=== PATIENT | male | born 1940 | race Caucasian/White ===

== ENCOUNTER 2019-03-29 21:17 | Inpatient (IN) ==
[2019-03-29 21:32] LABS: BASO# 0.02 X1000 (0.0-0.2); BASO% 0.2 % (0.0-0.8); EOS# 0.03 X1000 (0.0-0.7); EOS% 0.3 % (0.0-10.0); HEMATOCRIT 31.8 % (42.0-52.0); HEMOGLOBIN 10.3 g/dL (14.0-18.0); IMM GRAN# 0.12 X1000 (0.0-0.04); IMM GRAN% 1.2 % (0.0-0.5); LYMPH# 0.91 X1000 (1.2-3.4); LYMPH% 9.1 % (20.5-51.1); MCH 30.1 PG (27-31); MCHC 32.4 g/dL (33-37); MONO# 0.75 X1000 (0.11-0.59); MONO% 7.5 % (1.7-9.3); MPV 12.2 FL (7.4-10.4); NEUT# 8.21 X1000 (1.4-6.5); NEUT% 81.7 % (42.2-75.2); PLT 247 X1000 (130-400); RBC 3.42 XMIL (4.7-6.1); RDW 14.1 % (11.5-14.5); WBC 10.04 X1000 (4.8-10.8)
[2019-03-29] MEDS ORDERED: NITROGLYCERIN TOP ONE (21:37)
--- NOTE | 2019-03-29 21:38 | PROVIDER DOCUMENTATION ---
This chart was entered by Kindra Whitlock Scribe, acting as scribe for Jeremy Jorgensen MD. HPI-Chest Pain - General Chief Complaint: Chest Pain Stated Complaint: CP Time Seen by Provider: 03/29/19 21:18 Source: patient Allergies/Adverse Reactions: Patient Allergies Allergy/AdvReac Type Severity Reaction Status Date / Time No Known Allergies Allergy Verified 03/29/19 21:24 Home Medications: Home Medication List Medication Instructions Recorded Confirmed Last Taken Type Donepezil [Aricept] 10 mg PO DAILY 07/21/18 03/29/19 Unknown History Fluoxetine [Prozac] 10 mg PO DAILY 07/21/18 03/29/19 Unknown History Olmesartan Medoxomil [Benicar] 40 mg PO DAILY 07/21/18 03/29/19 Unknown History Meloxicam [Mobic] 15 mg PO DAILY #20 tab 03/21/19 03/30/19 Unknown Rx Allopurinol 100 mg PO DAILY 03/29/19 03/29/19 Unknown History Atenolol 50 mg PO DAILY 03/29/19 03/29/19 Unknown History Buspirone HCl 15 mg PO 4XDAY 03/29/19 03/30/19 Unknown History Chlorthalidone 25 mg PO DAILY 03/29/19 03/29/19 Unknown History Ergocalciferol (Vitamin D2) 1 cap PO DIRECTED 03/29/19 03/29/19 Unknown History [Vitamin D2] Fexofenadine HCl 1 tab PO DAILY 03/29/19 03/30/19 Unknown History Glimepiride [Amaryl] 1 tab PO DAILY 03/29/19 03/30/19 Unknown History Hydroxyzine HCl 10 mg PO BID 03/29/19 03/29/19 Unknown History Linaclotide [Linzess] 290 mcg PO DAILY 03/29/19 03/29/19 Unknown History Mirtazapine [Remeron] 1 tab PO DAILY 03/29/19 03/30/19 Unknown History Sitagliptin [Januvia] 50 mg PO DAILY 03/29/19 03/30/19 Unknown History - History of Present Illness-CP Nature of Presenting Problem: pt is a 79 yr old male presenting with complaint of shortness of breath and chest pressure, shortness of breath x 1+ weeks, seen x 2 by PCP for same, chest pressure/heaviness onset 1200 today. pt reports pain 5/10, continued shortness of breath, no nausea or vomiting. no relief with nitro or ASA. Location: reports: central Chest Pain Radiation: reports: no radiation Quality of Pain: reports: pressure, other (heavy) Severity in ED: moderate Onset/Duration: this afternoon Timing: still present Context/Activities at Onset: reports: light activity Modifying Factors: improves with: other medication (asa, nitro without relief) Associated Symptoms: reports: shortness of breath. denies: diaphoresis, nausea, vomiting Nitro Today/Relief: 0.4 mg x 1, provided by EMS, no relief Aspirin Treatment Today: 81 mg x 4, provided by EMS Similar Symptoms Previously?: Yes Recently Seen Here or By Another Healthcare Provider: Yes (seen x 2 this week by PCP) Review of Systems - Adult - REVIEW OF SYSTEMS - ADULT Constitutional: denies: chills, fever Eyes: reports: no symptoms reported Ears, Nose, Mouth & Throat: reports: no symptoms reported Cardiovascular: reports: chest pain. denies: palpitations, syncope Respiratory: reports: shortness of breath. denies: cough Gastrointestinal: denies: abdominal pain, nausea, vomiting Genitourinary: reports: no symptoms reported Musculoskeletal: denies: back pain, muscle weakness, neck pain Integumentary: reports: no symptoms reported Neurological: denies: dizziness/vertigo, headache/migraines, syncope Psychiatric: reports: no symptoms reported Endocrine: reports: no symptoms reported Hematologic/Lymphatic: reports: no symptoms reported Allergic/Immunologic: reports: no symptoms reported All Other Systems: Reviewed and Negative Past History - Adult - PAST MEDICAL HISTORY-ADULT Review of Records: reports: Old Records Reviewed, Nursing Assessment Review, Medications Reviewed, Social history reviewed & non-contributory. Major Childhood Illnesses: reports: denies history Cardiovascular: reports: HTN Respiratory: reports: denies history Gastrointestinal: reports: denies history Obstetrical/Gynecological: reports: denies history Genitourinary: reports: denies history Musculoskeletal: reports: denies history Neurological: reports: denies history Psychiatric: reports: denies history Endocrine/Immune: reports: denies history Other Conditions: reports: denies history - PRIOR SURGERIES/PROCEDURES Surgical/Procedure History: reports: reviewed, not pertinent, appendectomy - IMMUNIZATION STATUS Childhood Immunizations: See Nurse Assessment Flu Vaccine: See Nurse Assessment - FAMILY HISTORY Family History: reviewed, not pertinent - SOCIAL HISTORY Smoking: denies Substance Use: denies Living Situation: family Physical Exam-General - PHYSICAL EXAM-ADULT Initial Vital Signs Reviewed: Yes - CONSTITUTIONAL General Appearance: alert, no apparent distress, anxious - EYES Eyes: PERRL/EOMI - HEAD, EARS, NOSE, MOUTH & THROAT HENMT: normocephalic/atraumatic, moist mucous membranes, normal ENT inspection - NECK Neck: non-tender, full range of motion, supple, normal inspection - RESPIRATORY Respiratory: chest non-tender, no pleuratic chest pain, no respiratory distress, no accessory muscle use, decreased breath sounds (dimisnished bilaterally) - CARDIOVASCULAR Cardiovascular: normal peripheral pulses, regular rate, rhythm, no edema - GASTROINTESTINAL (ABDOMEN) Abdominal Exam: normal bowel sounds, non tender, soft - LYMPHATIC Lymphatic: no adenopathy - MUSCULOSKELETAL Back Exam: normal inspection, no CVA tenderness, no vertebral tenderness Extremity: normal range of motion, non-tender, normal gait, normal inspection - SKIN Integumentary: normal color, normal turgor, warm/dry - NEUROLOGIC Neurologic: grossly normal - PSYCHIATRIC Psych/Mental Status: anxious - HEART Score HEART Score: History: Slightly Suspicious HEART Score: ECG: Normal HEART Score: Age: > or = 65 Years HEART Score: Risk Factors for Atherosclerotic Disease: > or = 3 Risk Factors or History of Atherosclerotic Disease HEART Score: Troponin: < or = Normal Limit Total HEART Score:: 4 Progress - PLAN OF CARE/RESULTS Progress/Plan/Lab Results: Vital Signs - 8 hr 03/29/19 21:13 03/30/19 00:16 Temperature 99.2 F Pulse Rate 67 57 L Respiratory Rate 26 H 23 Blood Pressure 240/100 175/76 O2 Sat by Pulse Oximetry 98 97 Laboratory Results - last 24 hr 03/29/19 03/29/19 03/29/19 21:20 21:20 21:20 WBC 10.04 RBC 3.42 L Hgb 10.3 L Hct 31.8 L MCV 93.0 MCH 30.1 MCHC 32.4 L RDW Std Deviation 14.1 Plt Count 247 MPV 12.2 H Immature Gran % (Auto) 1.2 H Neut % (Auto) 81.7 H Lymph % (Auto) 9.1 L Teller % (Auto) 7.5 Eos % (Auto) 0.3 Baso % (Auto) 0.2 Immature Gran # (Auto) 0.12 H Neut # (Auto) 8.21 H Lymph # (Auto) 0.91 L Teller # (Auto) 0.75 H Eos # (Auto) 0.03 Baso # (Auto) 0.02 D-Dimer, Quantitative Sodium Potassium Chloride Carbon Dioxide Anion Gap BUN Creatinine Estimated GFR/1.73 m2 BUN/Creatinine Ratio Glucose Calculated Osmolality Calcium Total Bilirubin AST ALT Alkaline Phosphatase Creatine Kinase 46 Troponin T 0.051 Obi-P-Pppdfyxuanc Pept Total Protein Albumin Globulin Albumin/Globulin Ratio 03/29/19 03/29/19 03/29/19 21:20 21:20 21:20 WBC RBC Hgb Hct MCV MCH MCHC RDW Std Deviation Plt Count MPV Immature Gran % (Auto) Neut % (Auto) Lymph % (Auto) Teller % (Auto) Eos % (Auto) Baso % (Auto) Immature Gran # (Auto) Neut # (Auto) Lymph # (Auto) Teller # (Auto) Eos # (Auto) Baso # (Auto) D-Dimer, Quantitative 4.18 H Sodium 144 Potassium 4.4 Chloride 111 H Carbon Dioxide 18 L Anion Gap 14 BUN 41 H Creatinine 2.9 H Estimated GFR/1.73 m2 21 BUN/Creatinine Ratio 14 Glucose 222 H Calculated Osmolality 304 Calcium 7.8 L Total Bilirubin 0.30 AST 12 ALT 16 Alkaline Phosphatase 86 Creatine Kinase Troponin T Deo-Z-Blaovsuwjky Pept 05159 H Total Protein 5.6 L Albumin 3.3 L Globulin 2.0 Albumin/Globulin Ratio 1.0 Orders Category Date Time Status Admit - [facility] Routine AdmDCTranf 03/29/19 23:49 Active Activity - Strict Bedrest ORDERED Care 03/29/19 23:49 Active Cardiac Monitoring DIRECTED Care 03/29/19 21:23 Active Neurological Check Q4H Care 03/29/19 23:50 Active Resuscitation Status Routine Care 03/29/19 23:49 Ordered Vital Signs Order Q 4-HR ASSESS Care 03/29/19 23:49 Active Z-Document. for Tele Applied ORDERED Care 03/29/19 23:51 Active Heart Healthy Diet Diet 03/29/19 23:50 Active CHEST-PORTABLE [RAD] Stat Exams 03/29/19 21:23 Taken LUNG SCAN / VQ [NM] Stat Exams 03/30/19 09:00 Ordered BNP [PRO B-NATRIURETIC PEPTIDE] Stat Lab 03/29/19 21:20 Completed CBC WITH ELECTRONIC DIFF [HEME] Stat Lab 03/29/19 21:20 Completed CK PROFILE [SP CHEM] Stat Lab 03/29/19 21:20 Completed CMP [COMPREHENSIVE METABOLIC PANEL] [CHEM] Stat Lab 03/29/19 21:20 Completed D-DIMER [COAG] Stat Lab 03/29/19 21:20 Completed TROPONIN T Q4H Lab 03/30/19 02:14 Received TROPONIN T Q4H Lab 03/30/19 06:00 Ordered TROPONIN T Stat Lab 03/29/19 21:20 Completed Clonidine [Catapres] Med 03/29/19 23:51 Active 0.1 mg PO Q4H PRN PRN Clonidine [Catapres] Med 03/29/19 23:42 Discontinued 0.2 mg PO NOW ONE Enoxaparin [Lovenox] Med 03/29/19 23:29 Discontinued 89 mg SUBQ NOW ONE Nitroglycerin Med 03/29/19 21:37 Discontinued 0.5 inch TOP NOW ONE Oxygen Device Stat Oth 03/29/19 21:24 Completed Telemetry [OM.EQ] Routine Oth 03/29/19 23:49 Active EKG [EKG] Stat Ther 03/29/19 21:25 Ordered Echo Spec/Color Doppler Stat Ther 03/30/19 09:00 Ordered Transfer/Admit Order [TRANSFER] Routine Transfer 03/29/19 23:56 Completed Result Diagrams: 03/29/19 21:20 03/29/19 21:20 - EKG 1 Time of EKG reading by physician:: 21:18 EKG Read and Signed by:: Jeremy Jorgensen EKG Interpretation (*Must complete 3 of following elements*): Abnormal (septal infarct-age undetermined) Rate: 64 Rhythm: nsr with sinus arrhythmia [place]: normal QRS: normal RI Interval: normal Departure - Departure Date of Disposition Decision: 03/30/19 Time of Disposition Decision: 01:56 DIAGNOSIS: D-dimer, elevated, Hypertensive urgency, Renal insufficiency CHF (congestive heart failure) Qualifiers: Heart failure type: unspecified Heart failure chronicity: acute Qualified Code(s): I50.9 - Heart failure, unspecified Chest pain Qualifiers: Chest pain type: unspecified Qualified Code(s): R07.9 - Chest pain, unspecified Disposition: ADMITTED INPATIENT 09 Certified Medical Emergency: Emergent Condition: Stable - Critical Care Note This patient required my direct & personal management of CC.: No Attestation - Physician/ KATTY Attestation Patient care was provided by Advanced Practice Provider:: No The physician spent face to face time with patient:: Yes Advanced Practice Provider documentation review:: Supervising physician onsite and consulted in the evaluation and care of this patient. The physician did have a face to face encounter with the patient. This chart was documented by the indicated scribe, (Kindra Whitlock Scribe) and accurately reflects the services I performed and decisions made by me, Jeremy Jorgensen MD, as attested by the provider's signature.
[2019-03-29 22:11] LABS: ALBUMIN 3.3 g/dL (3.5-5.0); CALCIUM 7.8 mg/dL (8.8-10.2); CREATININE 2.9 mg/dL (0.7-1.2); POTASSIUM 4.4 mmol/L (3.5-5.1); TOTAL BILIRUBIN 0.3 mg/dL (0.20-1.00); TOTAL PROTEIN 5.6 g/dL (6.3-8.3)
[2019-03-29] MEDS ORDERED: LOVENOX SUBQ ONE (23:29)
[2019-03-29] MEDS ORDERED: CATAPRES PO ONE (23:42)
[2019-03-30] MEDS: CATAPRES PO PRN ×2 (03:00→23:12)
[2019-03-30] MEDS: LASIX IV SCH ×2 (06:39→19:08)
--- NOTE | 2019-03-30 06:53 | Diag Imaging Result Doc PS360 ---
CHEST-PORTABLE - 03/29/2019 INDICATION: cp COMPARISON: None FINDINGS: The patient is very rotated. There is an indeterminate right upper lobe opacity. There are calcified granulomas in the right midlung and right hilum. Heart size is grossly normal. IMPRESSION: Recommend a follow-up full upright two view chest x-ray, or else a chest CT. Electronically signed by Steve Wadsworth 03/30/2019 6:51 AM
[2019-03-30 10:21] LABS: ALBUMIN 2.5 g/dL (3.5-5.0); CALCIUM 7.9 mg/dL (8.8-10.2); POTASSIUM 4.9 mmol/L (3.5-5.1); TOTAL BILIRUBIN 0.3 mg/dL (0.20-1.00); TOTAL PROTEIN 5.1 g/dL (6.3-8.3)
--- NOTE | 2019-03-30 11:17 | Diag Imaging Result Doc PS360 ---
LUNG SCAN / VQ - 03/30/2019 INDICATION: sob,elevated d-dimer TECHNIQUE: 39.6 mCi of DTPA was used for inhalation. 5.7 mCi of MAA was used for injection. COMPARISON: Chest x-ray 03/29/2019 FINDINGS: There is normal localization pattern of the radiotracer's. There is no pulmonary perfusion defects. IMPRESSION: Negative for pulmonary embolism. Electronically signed by Steve Wadsworth 03/30/2019 11:14 AM
--- NOTE | 2019-03-30 11:23 | Diag Imaging Result Doc PS360 ---
US RENAL 2 (RETROPER) COMPLETE - 03/30/2019 INDICATION: JESSICA TECHNIQUE: COMPARISON: None FINDINGS: Background renal echotexture is diffusely hyperechoic compatible with chronic medical renal disease. There are also several renal cysts bilaterally. This measures up to 4.5 cm. There is no hydronephrosis or suspicious mass. Renal sizes are normal. The right kidney measures 12.9 x 6.7 x 6.9 cm. The left kidney measures 12.1 x 4.6 x 6.9 cm. Urinary bladder appears normal. IMPRESSION: 1. Diffusely hyperechogenic kidneys compatible with chronic medical renal disease. 2. Several benign renal cysts bilaterally. Electronically signed by Steve Wadsworth 03/30/2019 11:20 AM
--- NOTE | 2019-03-30 11:47 | Extremity Venous Study ---
Venous U/S Bilateral Legs - 03/30/2019 INDICATION: dyspnea, elevated ddimer TECHNIQUE: COMPARISON: 07/21/2018 FINDINGS: There is no evidence of venous thrombosis. There is extensive venous reflux. IMPRESSION: Negative for venous thrombosis. Electronically signed by Steve Wadsworth 03/30/2019 11:45 AM
[2019-03-30 14:41] LABS: UR CREAT RANDOM 47.9 mg/dL (14-26); UR PROT RANDOM 361.6 mg/dL
--- NOTE | 2019-03-30 17:36 | HISTORY AND PHYSICAL ---
CHIEF COMPLAINT: Shortness of breath and chest heaviness x2 weeks. HISTORY OF PRESENT ILLNESS: This is an 79-year-old gentleman with a history of atrial fibrillation on no anticoagulation, chronic kidney disease, hypertension and diabetes mellitus. He presents to the emergency room complaining of 2 weeks of shortness of breath and some chest pressure he states for which he was evaluated by his primary care physician twice during this time. Prior to coming to the emergency room, he developed chest pressure and heaviness, prompting him coming to the emergency room for evaluation. He describes a central chest pressure he rates as a 6 to 10 at its worst. He describes no radiation. He states he does not feel it in his back. It comes on with light activity, although it did not change with rest. He stated during this time his shortness of breath is consistent with what he has had the last 2 weeks. He denied any palpitations, any syncope, dizziness, any diaphoresis, nausea or vomiting. PAST MEDICAL HISTORY: Hypertension, chronic kidney disease, diabetes mellitus, dementia. PAST SURGICAL HISTORY: Appendectomy. SOCIAL HISTORY: He is recently and moved to live with his daughter in [place]. He was in the [employer] for 30 years before he retired. He denies any alcohol, tobacco, or illicit drug use. ALLERGIES: No known drug allergies. HOME MEDICATIONS: A list will be obtained by the nursing staff, and once verified, we will review and restart as is appropriate. REVIEW OF SYSTEMS: Discussed with patient with pertinent positives stated in the HPI. He denied any syncope, dizziness, any palpitations, a productive cough, any fevers or chills, any nausea, vomiting, diarrhea, constipation, black or bloody vomitus or stools, any hematuria or dysuria. He states he has had frequency and urgency for many years. PHYSICAL EXAMINATION: GENERAL: This is an 79-year-old gentleman who is sitting up in the bed in no distress. VITAL SIGNS: Blood pressure is 153/50 with a heart rate of 56, respirations are 18, temperature is 98.5 degrees oral with O2 sats 97% to 100% on 2 L nasal cannula. HEENT: Head is normocephalic, atraumatic. Sclerae are anicteric. Mucous membranes are moist. NECK: Supple with trachea midline. CARDIOVASCULAR: Regular rate and rhythm. S1 and S2 appreciated. No murmur. He has no lower extremity edema. Calves are nontender bilateral with peripheral pulses palpable x4 extremities. PULMONARY: Breath sounds are clear with no increased work of breathing noted. Chest rises and falls symmetrically with respiration. Chest wall is nontender to palpation. GASTROINTESTINAL: Abdomen is soft, nontender, nondistended with bowel sounds in all 4 quadrants. GENITOURINARY: He has no CVA or suprapubic tenderness. NEUROLOGIC: He is alert and oriented x3. SKIN: Warm and dry. LABORATORY DATA: 1. WBC is 10 with hemoglobin 10.3, hematocrit 31.8 with platelets of 247,000. D-dimer is 4.18. Sodium 144, potassium 4.4, BUN 41, creatinine 2.9 with a glucose of 222. ProBNP is 34,747. Chest x-ray revealed the patient is very rotated. There is an indeterminate right upper lobe opacity. There are calcified granulomas in the right mid lung and right hilum. Heart size is grossly normal. 2. V/Q scan is negative for pulmonary embolism. 3. Bilateral lower extremity Doppler reveals negative for venous thrombosis. ASSESSMENT AND PLAN: 1. Elevated D-dimer. V/Q and lower extremity Dopplers are negative. 2. Chronic kidney disease. On first evaluation, the patient stated that he had no history of kidney disease. After further questioning he did state that he had been told in the past he had chronic kidney disease stage 3, although he said that he did not believe it. We will check urine electrolytes as well as further labs and consult Neurology. The patient did state that he saw a industrial economics teacher at [employer], but it has been quite some time since he has followed up. 3. Atrial fibrillation, history of. The patient states that he is not aware of having any recent episodes. He is on no anticoagulation. We will continue telemetry and monitor. 4. Elevated proBNP. The patient states he does not remember having an echocardiogram obtained, and he states he has never been told that he had heart failure. He has been given Lasix, and we will check an echocardiogram stat. 5. Diabetes mellitus. The patient is on Januvia. Once dose is verified, we will continue. 6. Hypertension. We will monitor vital signs and continue his home medications as appropriate. 7. History of ulcers. Aware. 8. History of peripheral neuropathy. We will continue home medications. 9. History of gout. 10. For deep venous thrombosis prophylaxis, he was given Lovenox. We will continue with 40 mg daily. 11. Gastrointestinal prophylaxis: Prilosec. Further treatments pending hospital course. Dictated by ANEUDY Baeza for Lex Kendrick MD cc: ANEUDY Baeza MD
--- NOTE | 2019-03-30 21:06 | HISTORY AND PHYSICAL ---
ADDENDUM: Patient seen and examined by myself. Full note dictated and discussed with nurse practitioner. Patient presented to the hospital with shortness of breath, chest heaviness. Currently notes that his symptoms are better. Did have an elevated D-dimer and had a negative V/Q and negative Doppler on his lower extremities. Has chronic kidney disease and ultrasound demonstrates chronic kidney disease. Has a known history of atrial fibrillation. We will admit him for observation overnight and we will follow. Hopefully, he can discharge home in the morning. cc: Lex Kendrick MD
[2019-03-30] MEDS: BUSPAR PO SCH (23:55)
[2019-03-30] MEDS: ARICEPT PO SCH (23:56)
[2019-03-30] MEDS: ALLEGRA PO SCH (23:57)
[2019-03-30] MEDS: ZYLOPRIM PO SCH (23:57)
[2019-03-30] MEDS: TENORMIN PO SCH (23:58)
[2019-03-31] MEDS: LASIX IV SCH ×3 (05:56→19:27)
[2019-03-31] MEDS: PRILOSEC PO SCH ×2 (05:57→06:25)
[2019-03-31 06:18] LABS: HEMATOCRIT 28.1 % (42.0-52.0); HEMOGLOBIN 8.9 g/dL (14.0-18.0); MCH 29.3 PG (27-31); MCHC 31.7 g/dL (33-37); MCV 92.4 FL (81-99); MPV 12.6 FL (7.4-10.4); RBC 3.04 XMIL (4.7-6.1); RDW 13.6 % (11.5-14.5); WBC 6.94 X1000 (4.8-10.8)
[2019-03-31 06:38] LABS: ALBUMIN 2.9 g/dL (3.5-5.0); CALCIUM 8.3 mg/dL (8.8-10.2); CREATININE 2.9 mg/dL (0.7-1.2); PHOSPHORUS 4.5 mg/dL (2.7-4.5); POTASSIUM 4.6 mmol/L (3.5-5.1)
--- NOTE | 2019-03-31 07:11 | Diag Imaging Result Doc PS360 ---
EXAM: CHEST-2 VIEWS HISTORY: dyspnea, RUL opacity TECHNIQUE: Chest two views COMPARISON: 03/29/2019 FINDINGS: The lungs are hyperexpanded the heart is mildly prominent. The vessels are not distended. There are no infiltrates. No pleural effusions. Likely scarring in the lung bases. Right apical opacity is less apparent. CT would confirm the absence of an abnormality. Right granuloma. IMPRESSION: Stable chest Electronically signed by Hayden Trinh 03/31/2019 7:08 AM
[2019-03-31] MEDS: HYGROTON PO SCH (08:10)
[2019-03-31] MEDS: JANUVIA PO SCH (08:10)
[2019-03-31] MEDS: BUSPAR PO SCH ×4 (08:10→21:36)
[2019-03-31] MEDS: PROZAC PO SCH (08:11)
[2019-03-31] MEDS: TENORMIN PO SCH ×2 (08:11→21:36)
[2019-03-31] MEDS: REMERON PO SCH (08:11)
[2019-03-31] MEDS: AMARYL PO SCH (08:11)
[2019-03-31] MEDS: BENICAR PO SCH (08:11)
[2019-03-31] MEDS ORDERED: MOBIC PO SCH (09:00)
[2019-03-31] MEDS ORDERED: LINZESS PO SCH (09:00)
[2019-03-31] MEDS ORDERED: LOVENOX SUBQ SCH (09:00)
[2019-03-31] MEDS ORDERED: VITAMIN D PO SCH (10:00)
[2019-03-31 14:13] LABS: ANTINEUTROPHIL CYTOPLASMIC AB SEE COMMENTS
--- NOTE | 2019-03-31 15:07 | EKG Report ---
Test Performed on : 03/29/2019 9:17:16 PM Test Reason : pain Blood Pressure : / mmHG Vent. Rate : 064 BPM Atrial Rate : 064 BPM P-R Int : 178 ms QRS Dur : 108 ms QT Int : 454 ms P-R-T Axes : 041 -01 053 degrees QTc Int : 468 ms Normal sinus rhythm. with sinus arrhythmia. Septal infarct , age undetermined Abnormal ECG No previous ECGs available Unconfirmed Result
--- NOTE | 2019-03-31 18:29 | NEPHROLOGY CONSULTATION ---
DATE: 03/31/2019 REASON FOR CONSULTATION: Chronic kidney disease. HISTORY OF PRESENT ILLNESS: Mr. Shaikh is an 79-year-old white male who has known chronic kidney disease, he states stage 3, and was followed by a missile pad mechanic at [place] whom he states came from [place]. He has not seen him in several years. His primary care doctor was able to report a creatinine of 1.7 in 2017. He has never had a kidney biopsy. He has hypertension, diabetes, atrial fibrillation. He came to the hospital because of shortness of breath and chest discomfort. He has been treated with oxygen as well as diuretics with improvement in his symptoms. In this context, his creatinine was 3.0. Complements and ANCAs were collected and were negative. Serum electrophoresis was positive for a monoclonal band. We were asked to assist with his care and evaluation. PAST MEDICAL HISTORY: As above. HOME MEDICATIONS: Include: 1. Donepezil. 2. Losartan. 3. Fluoxetine. 4. Meloxicam. 5. Allopurinol. 6. Chlorthalidone. 7. Ergocalciferol. 8. Hydroxyzine. 9. Linzess. 10. Fexofenadine. 11. Glimepiride. 12. Atenolol. 13. Buspirone. 14. Mirtazapine. 15. Sitagliptin. ALLERGIES: None. SOCIAL HISTORY: He is and lives with his daughter in the [facility]. Former smoker. FAMILY HISTORY: Otherwise noncontributory. REVIEW OF SYSTEMS: Otherwise negative. PHYSICAL EXAMINATION: Vital Signs: Blood pressure 170/80, heart rate 58, respirations 18, afebrile. General: Elderly man, sitting up, in no acute distress. Skin: Warm and dry with multiple bruises and hyperpigmentation. HEENT: Conjunctivae are pink and moist. Pupils equal, round. Oropharynx clear. Normal tongue. Normal teeth. Neck: Supple. Trachea is midline. Neck vein distention not present. Heart: Irregular. No murmurs, rubs, gallops. Lungs: Equal breath sounds. No crackles, wheezes, accessory muscle use, or retractions. Abdomen: Soft, nontender. Bowel sounds present. Extremities: No edema, clubbing, or cyanosis. IMPRESSION: Chronic kidney disease stage 4. Monoclonal band on serum protein electrophoresis. Will ask Hematology to help us complete the evaluation. If his diagnosis remains unclear, he may require kidney biopsy. Ultrasound demonstrated normal sized kidneys that were diffusely echogenic with several cysts. I will stop his meloxicam, but no other medication changes are required at this time. cc: Murphy Solis MD
[2019-03-31] MEDS: ALLEGRA PO SCH (21:36)
[2019-03-31] MEDS: ARICEPT PO SCH (21:36)
[2019-03-31] MEDS: ZYLOPRIM PO SCH (21:36)
--- NOTE | 2019-03-31 23:26 | PROGRESS NOTE ---
DATE: 03/31/2019 SUBJECTIVE: Earlier this morning, patient was eating breakfast and was wanting to go home. Denies any complaints. He started having diarrhea. Notes his chest heaviness and chest pain is improved. PHYSICAL EXAMINATION: Vital signs: Temperature 98, pulse 82, respiratory 18, BP 169/78. General: Patient is in no distress. Neck: Supple. Cardiovascular: Regular rate. Chest: Clear nonlabored. Abdomen: Soft, nondistended, nontender. Extremities: Moves all extremities. Neurologic: No changes. ASSESSMENT: 1. Diarrhea, most likely secondary to Linzess. The patient now acknowledges that he only takes Linzess occasionally and he has been receiving each day. 2. Chronic kidney disease. 3. Abnormal protein electrophoresis. 4. History of atrial fibrillation. 5. Diabetes. 6. Hypertension. 7. Peptic ulcer disease. 8. Peripheral neuropathy. 9. Gout. PLAN: We will continue patient in the hospital. Dr. Solis is seeing the patient in consultation. His electrophoresis is abnormal. This will need to be followed up with Heme-Onc. We will continue patient in the hospital today due to the diarrhea. Assuming that it is improved tomorrow, hopefully, he can be discharged home. cc: Lex Kendrick MD
[2019-03-31] MEDS: CATAPRES PO PRN (23:28)
[2019-04-01] MEDS: LASIX IV SCH (05:34)
[2019-04-01] MEDS: PRILOSEC PO SCH (06:29)
--- NOTE | 2019-04-01 08:09 | NEPHROLOGY PROGRESS NOTE ---
DATE: 04/01/2019 SUBJECTIVE: He is not wearing his oxygen. No shortness of breath. He states he has been out of bed without dizziness, shortness of breath, etc. OBJECTIVE: Vital Signs: Blood pressure 171/63, heart rate 63, respirations 14, T-max 99.3 degrees. General: No acute distress. Skin: Warm and dry. Multiple bruises. Conjunctivae pink. Oropharynx not examined. Neck: Neck veins not distended. Trachea midline. Heart: Regular with S4. No rubs. Lungs: Have equal breath sounds. No crackles or wheezes. Abdomen: Soft, nontender. Bowel sounds present. Extremities: No edema, clubbing, or cyanosis. IMPRESSION: Chronic kidney disease stage 4. He has known chronic kidney disease stage 3 from several years ago. Last labs we have are from 2017. Creatinine 1.7 at that time. He has significant proteinuria and his SPEP was positive. I have consulted with Dr. Mauricio by telephone and ordered the requisite labs. He will see us in the office and see Dr. Mauricio in the office in followup. Labs are pending for today. Blood pressure is above target but acceptable for in the hospital. cc: Murphy Solis MD
--- NOTE | 2019-04-01 08:12 | NEPHROLOGY PROGRESS NOTE ---
DATE: 04/01/2019 SUBJECTIVE: He is lying in bed without using his oxygen. Denies shortness of breath and states he breathes better without the oxygen. No chest pain. No palpitation, nausea, vomiting. He states he has been out of bed without dizziness or other symptoms. OBJECTIVE: Vital Signs: Blood pressure 171/63, heart rate 63, respirations 14, temperature 99.3 degrees. General: No acute distress. Skin: Warm and dry. Multiple ecchymoses. HEENT: Conjunctivae are pink and moist. Pupils are equal. Neck: Neck veins are not distended. Trachea is midline. Heart: Regular with S4. No murmurs. Lungs: Have equal breath sounds. No crackles or wheezes. Abdomen: Soft, nontender. Bowel sounds present. Extremities: No edema, clubbing, or cyanosis. IMPRESSION: Chronic kidney disease stage 4. Labs are stable since admission. The last creatinine I have been able to obtain was 1.7 from 2017. He carries a diagnosis of diabetic nephropathy according to his history, however, his SPEP was positive. I have consulted by phone with Dr. Mauricio and ordered the requisite tests. He can follow up with both me and Dr. Mauricio as an outpatient. Regarding his blood pressure, I would simply restart his olmesartan. Okay for discharge from my perspective. cc: Murphy Solis MD
[2019-04-01 08:19] LABS: ALBUMIN 3.1 g/dL (3.5-5.0); CALCIUM 8.3 mg/dL (8.8-10.2); CREATININE 2.9 mg/dL (0.7-1.2); PHOSPHORUS 4.3 mg/dL (2.7-4.5); POTASSIUM 3.8 mmol/L (3.5-5.1)
[2019-04-01 08:31] VITALS: BP 179/75
[2019-04-01] MEDS: BUSPAR PO SCH (08:47)
[2019-04-01] MEDS: HYGROTON PO SCH (08:47)
[2019-04-01] MEDS: BENICAR PO SCH (08:48)
[2019-04-01] MEDS: REMERON PO SCH (08:48)
[2019-04-01] MEDS: JANUVIA PO SCH (08:48)
[2019-04-01] MEDS: PROZAC PO SCH (08:49)
[2019-04-01] MEDS: AMARYL PO SCH (08:49)
[2019-04-01] MEDS: TENORMIN PO SCH (08:49)
[2019-04-01] MEDS ORDERED: LASIX PO SCH (09:00)
[2019-04-01] MEDS ORDERED: NORVASC PO SCH (09:00)
--- NOTE | 2019-04-02 07:28 | DISCHARGE SUMMARY ---
ADMISSION DATE: 03/30/2019 DISCHARGE DATE: 04/01/2019 DISCHARGE DIAGNOSES: 1. Chronic renal failure with questionable acute worsening. 2. Elevated D-dimer, likely secondary to his renal failure. V/Q scan and ultrasound were negative. 3. Atrial fibrillation by history. 4. Elevated proBNP. 5. Diabetes. 6. Hypertension. 7. Peripheral neuropathy. 8. Gout. 9. Abnormal protein electrophoresis. CONSULTATIONS: Nephrology. PROCEDURES: Ultrasound of abdomen demonstrating chronic renal disease. BRIEF HOSPITAL COURSE: Patient is an 79-year-old male who appears to be somewhat noncompliant with his medical history. Initially, he denied any medical issues with his kidneys. However, after we discussed with him that he was in renal failure he did say he was told that several years ago, but he did not believe it. The patient thankfully had an uneventful hospital course. We actually were going to discharge him home on the , but he had several episodes of diarrhea and we were certainly concerned that this may be worsening. Therefore, he was watched overnight one more night and thankfully his symptoms resolved. DISPOSITION: On discharge, patient is awake and alert. He is in no distress. Overall, he is feeling better. His symptoms have resolved. Discussed with him that he did have an abnormal protein electrophoresis, and he needs to follow up outpatient with Dr. Mauricio. The patient states that he understands. No changes were made on his chronic home medications. TIME SPENT: Thirty-five minutes was spent in total care. cc: Lex Kendrick MD
== END 2019-04-01 10:04 | disposition home or self-care (01) | DRG 313 ==
LOC: P.ED 21:17 → P.MEDSURG 21:17 → SUATTDRO 03-30 01:47 → OBSVTOIN 03-30 01:47 → P.MEDSURG 03-30 01:52
PROVIDERS: ATTEND Family Medicine
CPT/HCPCS: 36415; 71010; 71020; 71045; 71046; 76770; 78582; 80053; 80069; 82232; 82550; 82570; 83516; 83520; 83880; 83883; 84155; 84156; 84165; 84300; 84484; 85025; 85027; 85379; 85651; 86038; 86039; 86160; 87205; 87324; 93005; 93306; 93970; 94761; 96372; 99285; A9270; A9539; A9540; J1650; J1940

== ENCOUNTER 2019-09-04 10:50 | Inpatient (IN) ==
--- NOTE | 2019-09-04 14:06 | Diag Imaging Result Doc PS360 ---
EXAM: CHEST-1 VIEW HISTORY: weakness TECHNIQUE: Single view COMPARISON: 03/31/2019 FINDINGS: The lungs are well expanded. The heart is not enlarged. The vessels are not distended. Dense right upper lobe infiltrate. No effusion identified. IMPRESSION: Right upper lobe pneumonia Electronically signed by Hayden Trinh 09/04/2019 2:04 PM
[2019-09-04 14:10] LABS: BASO# 0.01 X1000 (0.0-0.2); BASO% 0.2 % (0.0-0.8); EOS# 0.01 X1000 (0.0-0.7); EOS% 0.2 % (0.0-10.0); HEMATOCRIT 30.5 % (42.0-52.0); HEMOGLOBIN 9.6 g/dL (14.0-18.0); LYMPH# 0.76 X1000 (1.2-3.4); LYMPH% 12.3 % (20.5-51.1); MCH 29.3 PG (27-31); MCHC 31.5 g/dL (33-37); MONO# 0.32 X1000 (0.11-0.59); MONO% 5.2 % (1.7-9.3); MPV 12.5 FL (7.4-10.4); NEUT# 5.09 X1000 (1.4-6.5); NEUT% 82.1 % (42.2-75.2); PLT 182 X1000 (130-400); RBC 3.28 XMIL (4.7-6.1); RDW 13.9 % (11.5-14.5); WBC 6.19 X1000 (4.8-10.8)
--- NOTE | 2019-09-04 14:38 | Diag Imaging Result Doc PS360 ---
EXAM: CT HEAD W/O CONTRAST HISTORY: weakness TECHNIQUE: CT head without contrast COMPARISON: None. FINDINGS: No parenchymal hemorrhage. No epidural or subdural hematoma. No subarachnoid hemorrhage. Old right temporal infarct. There is moderate atrophy. No mass identified on this noncontrasted exam. No hydrocephalus. No sinus opacification. IMPRESSION: 1.No hemorrhage 2.On the right temporal infarct 3.Atrophy This exam was performed using automated exposure control, adjustment of mA or kV according to patient size, and/or use of iterative reconstruction technique. Electronically signed by Hayden Trinh 09/04/2019 2:36 PM
[2019-09-04 14:49] LABS: ALB/GLOB RATIO 1.5; ALBUMIN 3.7 g/dL (3.5-5.0); CALCIUM 8.3 mg/dL (8.8-10.2); CREATININE 3.1 mg/dL (0.7-1.2); POTASSIUM 4.7 mmol/L (3.5-5.1); TOTAL BILIRUBIN 0.4 mg/dL (0.20-1.00); TOTAL PROTEIN 6.2 g/dL (6.3-8.3)
[2019-09-04] MEDS ORDERED: NS 1,000 ML IV ONE (15:21)
[2019-09-04 15:24] LABS: URINE SOURCE CLEAN CATCH
[2019-09-04 15:31] LABS: BILIRUBIN URINE NEGATIVE (NEGATIVE); BLOOD URINE NEGATIVE (NEGATIVE); COLOR YELLOW; GLUCOSE URINE TRACE mg/dL (NEGATIVE); KETONE URINE NEGATIVE (NEGATIVE); LEUKOCYTES URINE NEGATIVE (NEGATIVE); NITRITE URINE NEGATIVE (NEGATIVE); PH URINE 6.5; PROTEIN URINE 300 mg/dL (NEGATIVE); SP GRAVITY URINE 1.013; TURBIDITY URINE CLEAR (CLEAR); UROBILINOGEN URINE NORMAL (NORMAL)
[2019-09-04 15:33] LABS: UR EPITHELIAL CELLS <10 /HPF (<10); URINE BACTERIA NEGATIVE /HPF; URINE RBC TNTC /HPF (<10); URINE WBC 20-40 /HPF (<10)
[2019-09-04] MEDS ORDERED: ROCEPHIN 1 GM in NS 50 ML IV ONE (15:34)
[2019-09-04] MEDS ORDERED: NS 50 ML ONE (15:47)
[2019-09-04 15:54] LABS: URINE CASTS GRANULAR PRESENT; URINE CRYSTALS NONE SEEN; URINE YEAST NONE SEEN
--- NOTE | 2019-09-04 16:16 | PROVIDER DOCUMENTATION ---
This chart was entered by Kamilah Guerra Scribe, acting as scribe for Jamaal Sharma MD. HPI-General Adult - General Chief Complaint: General Adult Stated Complaint: FALLS, DIARRHEA, DIZZY Time Seen by Provider: 09/04/19 13:20 Source: patient Allergies/Adverse Reactions: Patient Allergies Allergy/AdvReac Type Severity Reaction Status Date / Time No Known Allergies Allergy Verified 08/14/19 18:14 Home Medications: Home Medication List Medication Instructions Recorded Confirmed Last Taken Type Donepezil [Aricept] 10 mg PO QHS 07/21/18 08/14/19 08/12/19 20:00 History Olmesartan Medoxomil [Benicar] 40 mg PO DAILY 07/21/18 08/14/19 08/14/19 07:00 History Allopurinol 100 mg PO HS 03/29/19 08/14/19 08/12/19 20:00 History Atenolol 50 mg PO BID 03/29/19 08/14/19 08/14/19 07:00 History Chlorthalidone 25 mg PO DAILY 03/29/19 08/14/19 08/14/19 07:00 History Ergocalciferol (Vitamin D2) 1 cap PO DIRECTED 03/29/19 08/14/19 08/10/19 07:00 History [Vitamin D2] Fexofenadine HCl 1 tab PO QHS 03/29/19 08/14/19 08/12/19 20:00 History Glimepiride [Amaryl] 1 tab PO DAILY 03/29/19 08/14/19 08/14/19 07:00 History Mirtazapine [Remeron] 1 tab PO DAILY 03/29/19 08/14/19 08/12/19 20:00 History Sitagliptin [Januvia] 50 mg PO DAILY 03/29/19 08/14/19 08/14/19 07:00 History Amlodipine [Norvasc] 5 mg PO DAILY #30 tab 04/01/19 08/14/19 08/14/19 07:00 Rx Furosemide [Lasix] 40 mg PO DAILY #30 tab 04/01/19 08/14/19 08/14/19 07:00 Rx Gabapentin [Neurontin] 100 mg PO TID 08/14/19 08/14/19 08/13/19 07:00 History Hydralazine [Apresoline] 25 mg PO TID 08/14/19 08/14/19 08/14/19 07:00 History - History of Present Illness -Gen Adult Nature of Presenting Problems: Patient is a 79 year old male who presents with generalized weakness. States weakness started last night. Denies numbness and tingling to extremities. Reports seeing PCP 2 days ago and was prescribed atrovent nasal spray. Quality of Pain: reports: none Severity: reports: mild Onset/Duration: reports: last night Timing: reports: still present Context/Activities at Onset: reports: light activity Associated Symptoms: reports: weakness Similar Symptoms Previously?: Yes Recently seen or treated by another doctor?: Yes Review of Systems - Adult - REVIEW OF SYSTEMS - ADULT Constitutional: reports: no symptoms reported. denies: fever Eyes: reports: no symptoms reported. denies: decreased vision, blurred vision, double vision Ears, Nose, Mouth & Throat: reports: sinus problem (drainage). denies: ear pain, throat pain Cardiovascular: reports: no symptoms reported. denies: chest pain, irregular heart rate, palpitations Respiratory: reports: no symptoms reported. denies: shortness of breath Gastrointestinal: reports: no symptoms reported. denies: abdominal pain, nausea, vomiting Genitourinary: reports: no symptoms reported Musculoskeletal: reports: see HPI, muscle weakness. denies: back pain, neck pain Integumentary: reports: no symptoms reported Neurological: reports: no symptoms reported. denies: headache/migraines, numbness, paresthesia Psychiatric: reports: no symptoms reported Endocrine: reports: no symptoms reported Hematologic/Lymphatic: reports: no symptoms reported Allergic/Immunologic: reports: no symptoms reported All Other Systems: Reviewed and Negative Past History - Adult - PAST MEDICAL HISTORY-ADULT Review of Records: reports: Old Records Reviewed, Nursing Assessment Review, Medications Reviewed, Social history reviewed & non-contributory. Major Childhood Illnesses: reports: denies history Cardiovascular: reports: HTN Respiratory: reports: denies history Gastrointestinal: reports: denies history Obstetrical/Gynecological: reports: denies history Genitourinary: reports: kidney disease Musculoskeletal: reports: denies history Neurological: reports: Alzheimer's Psychiatric: reports: other (Alzheimer) Endocrine/Immune: reports: Diabetes Other Conditions: reports: denies history - PRIOR SURGERIES/PROCEDURES Surgical/Procedure History: reports: reviewed, not pertinent, appendectomy - IMMUNIZATION STATUS Childhood Immunizations: See Nurse Assessment Flu Vaccine: See Nurse Assessment - FAMILY HISTORY Family History: reviewed, not pertinent - SOCIAL HISTORY Smoking: denies Substance Use: denies Physical Exam-General - PHYSICAL EXAM-ADULT Initial Vital Signs Reviewed: Yes - CONSTITUTIONAL General Appearance: alert, no apparent distress. negative: lethargic - EYES Eyes: PERRL/EOMI, pink conjunctivae. negative: pale conjunctivae, scleral icterus - HEAD, EARS, NOSE, MOUTH & THROAT HENMT: normocephalic/atraumatic, moist mucous membranes. negative: angioedema - RESPIRATORY Respiratory: chest non-tender, lungs clear, normal breath sounds. negative: crackles, rhonchi - CARDIOVASCULAR Cardiovascular: normal peripheral pulses, regular rate, rhythm. negative: tachycardia - GASTROINTESTINAL (ABDOMEN) Abdominal Exam: normal bowel sounds, non tender, soft. negative: rigid - SKIN Integumentary: normal color, normal turgor, warm/dry. negative: pallor - NEUROLOGIC Neurologic: grossly normal, other (sap basis 2 to 12 tested and intact. negative pronator drift bilaterally.). negative: aphasia, facial droop, motor weakness, sensory deficit - PSYCHIATRIC Psych/Mental Status: normal mood/affect, oriented x 3. negative: anxious Progress - PLAN OF CARE/RESULTS Progress/Plan/Lab Results: Vital Signs - 8 hr 09/04/19 10:59 Temperature 98.1 F Pulse Rate 54 L Respiratory Rate 20 Blood Pressure 173/65 O2 Sat by Pulse Oximetry 96 Laboratory Results - last 24 hr 09/04/19 11:05 POC Glucose 84 Result Diagrams: 09/04/19 13:33 09/04/19 13:57 - EKG 1 Time of EKG reading by physician:: 11:12 EKG Read and Signed by:: Jamaal Sharma EKG Interpretation (*Must complete 3 of following elements*): Abnormal Rate: 51 Rhythm: atrial fibrillation with slow ventricular response [place]: normal QRS: LBB (incomplete), LVH (minimal voltage criteria, may be normal variant) - XRAY 1 XRAY Study: Chest Impression: See EMR Report ( Signed EXAM: CHEST-1 VIEW HISTORY: weakness TECHNIQUE: Single view COMPARISON: 03/31/2019 FINDINGS: The lungs are well expanded. The heart is not enlarged. The vessels are not dist ended. Dense right upper lobe infiltrate. No effusion identified. IMPRESSION: Right upper lobe pneumonia Electronically signed by Hayden Trinh 09/04/2019 2:04 PM 09/04/19 1404 Interpreting Physician: Hayden Trinh MD Dictated Date/Time: 09/04/19 1403 cc: Jamaal Sharma MD; Rickie Mejia MD) - CT/MRI 1 CT Study: Head Impression: See EMR Report (EXAM: CT HEAD W/O CONTRAST HISTORY: weakness TECHNIQUE: CT head without contrast COMPARISON: None. FINDINGS: No parenchymal hemorrhage. No epidural or subdural hematoma. No subarachnoid hemorrhage. Old right temporal infarct. There is moderate atrophy. No mass identified on this noncontrasted exam. No hydrocephalus. No sinus opacification. IMPRESSION: 1.No hemorrhage 2.On the right temporal infarct 3.Atrophy This exam was performed using automated exposure control, adjustment of mA or kV according to patient size, and/or use of iterative reconstruction technique. Electronically signed by Hayden Trinh 09/04/2019 2:36 PM 09/04/19 1436 Interpreting Physician: Hayden Trinh MD Dictated Date/Time: 09/04/19 1435 cc: Jamaal Sharma MD; Rickie Mejia MD) - CONSULTS/PCP/HOSPITALIST Notification #1 *Consult/PCP/Hospitalist*: Dr. Mejia paged at 1447 Time Discussed: 15:32 Reason/Comments: Dr. Sharma consulted with Dr. Mejia about patient. Consult Disposition: Will see in ED, Admit Departure - Departure Date of Disposition Decision: 09/04/19 Time of Disposition Decision: 15:34 DIAGNOSIS: Weakness, Acute on chronic renal insufficiency Right upper lobe pneumonia Qualifiers: Pneumonia type: due to unspecified organism Qualified Code(s): J18.1 - Lobar pneumonia, unspecified organism UTI (urinary tract infection) Qualifiers: Urinary tract infection type: site unspecified Hematuria presence: with hematuria Qualified Code(s): N39.0 - Urinary tract infection, site not spe cified; R31.9 - Hematuria, unspecified Disposition: ADMITTED INPATIENT 09 Certified Medical Emergency: Emergent Condition: Good Referrals and Follow-Ups: Rickie Mejia MD [Primary Care Provider] - - Critical Care Note This patient required my direct & personal management of CC.: No Attestation - Physician/ KATTY Attestation Patient care was provided by Advanced Practice Provider:: No The physician spent face to face time with patient:: Yes Advanced Practice Provider documentation review:: Supervising physician onsite and consulted in the evaluation and care of this patient. The physician did have a face to face encounter with the patient. This chart was documented by the indicated scribe, (Kamilah Guerra, [place]) and accurately reflects the services I performed and decisions made by me, Jamaal Sharma MD, as attested by the provider's signature.
[2019-09-04] MEDS ORDERED: NORVASC PO ONE (17:25)
[2019-09-04] MEDS ORDERED: APRESOLINE PO ONE (17:26)
[2019-09-04] MEDS ORDERED: TENORMIN PO ONE (17:26)
[2019-09-04] MEDS ORDERED: TYLENOL PO PRN (18:33)
--- NOTE | 2019-09-04 19:47 | HISTORY AND PHYSICAL ---
CHIEF COMPLAINT: Generalized weakness. HISTORY OF PRESENT ILLNESS: Mr. Shaikh is an 79-year-old gentleman with longstanding type 2 diabetes mellitus and chronic kidney disease and hypertension. He was seen in the office this past Saturday. His blood pressure seemed significantly improved. He states that last night he got up to have a bowel movement and did not quite make it to the bathroom, and while attempting to clean up the mess, he was unable to stand back up after cleaning the floor, but managed to pull himself back into bed. His son came to visit him today from [place], and felt he was too weak and brought him to the emergency room. He now is walking with his walker, and after a little food and drink, seems to have recovered. He is significantly hypertensive with a blood pressure of 205/74, and his chest x-ray shows a fairly dense right upper lobe infiltrate with air bronchograms. He denies any shortness of breath, cough, chest congestion or chest pain. His white blood count is normal. He has a fairly stable anemia of chronic kidney disease. His chemistry profile shows a BUN of 63 and a creatinine of 3.1, similar to his baseline. His glucose is 149. PAST MEDICAL HISTORY: Type 2 diabetes mellitus, hypertension, chronic kidney disease, anemia. SURGICAL HISTORY: Remote history of appendectomy and a cyst removed from his neck. SOCIAL HISTORY: Approximately a year ago he was living in [place] and got a divorce and decided to move in with his daughter in [place]. He denies any previous alcohol, tobacco or illicit drug use. He is retired from the [employer]. ALLERGIES: No known drug allergies. HOME MEDICATIONS: Januvia 50 mg daily for diabetes, allopurinol 100 mg daily for gout, amlodipine 5 mg twice a day for hypertension, atenolol 50 mg at bedtime, donepezil 10 mg at bedtime, vitamin D 50,000 units, 1 weekly, furosemide 40 mg daily for hypertension, gabapentin 100 mg 3 times a day for neuropathy, glimepiride 1 mg daily for diabetes, hydralazine 25 mg 3 times a day for hypertension, lorazepam 1 mg at bedtime p.r.n. for sleep, melatonin 5 mg at bedtime as needed for sleep, mirtazapine 30 mg at bedtime, olmesartan 40 mg daily. REVIEW OF SYSTEMS: GENERAL: No fever, chills, or weight loss. HEENT: Complains of clear rhinorrhea frequently with minimal if any sneezing. CARDIOVASCULAR: No history of orthopnea, chest pain or pedal edema. RESPIRATORY: No cough, shortness of breath or wheezing. GI: His appetite has been good. He denies any nausea, vomiting, diarrhea, constipation or significant abdominal pain. NEUROLOGIC: No recent headache, numbness or vertigo. He does have chronic tinnitus. : Nocturia x2 to 3 per night. No dysuria, fever or chills. PHYSICAL EXAMINATION: VITAL SIGNS: Temperature 98.1, blood pressure 173/65, pulse 54, respiratory rate 20, 96% 02 saturation on room air. GENERAL APPEARANCE: Alert, [id number] elderly gentleman in no acute distress. HEENT: Pupils equal, round, and reactive to light. Extraocular movements are intact. Oropharynx is benign with moist mucous membranes. NECK: Supple with no adenopathy, JVD or bruits. CARDIOVASCULAR: Regular rate and rhythm. Normal S1 and S2. No murmurs, rubs or gallops. RESPIRATORY: Lungs are clear to auscultation bilaterally without crackles or wheezes. ABDOMEN: Soft and nontender with active bowel sounds. No tenderness, guarding or rebound tenderness noted. EXTREMITIES: No edema. Normal muscle mass. NEUROLOGIC: Speech is clear and well articulated. Recent and remote memory seems reasonably intact. Cranial nerves II-XII are intact. He moves all extremities on command and is able to walk to the bathroom and back using his front-wheeled walker without difficulty. LABS/DIAGNOSTICS: Chest x-ray demonstrates a fairly dense consolidated right upper lobe infiltrate with air bronchograms. This is somewhat inferior to a previous right upper lobe infiltrate last March. White blood count is 6200, hemoglobin 9.6, hematocrit 30.5%, platelet count 182,000. Chemistry is as noted above. ASSESSMENT: 1. Generalized weakness, probably due to pneumonia. 2. Right upper lobe infiltrate, apparently new since March. 3. Chronic kidney disease stage 4 with nephrotic-range proteinuria. He apparently did not follow up with Dr. Solis when he was in the hospital before. 4. Type 2 diabetes, relatively well controlled, but with peripheral neuropathy and chronic kidney disease. 5. Marked hypertension. When he takes his medication, it seems much better controlled. PLAN: Will admit for intravenous antibiotics and consideration of a chest CT. His chronic kidney disease makes me hesitate to give him any intravenous contrast. I will review the chest x-ray with the radiologist and consider a noncontrast CT. He may also need some physical therapy and possibly rehab if he is not able to get back and forth to the bathroom at home. cc: Rickie Mejia MD
[2019-09-04] MEDS: ZYLOPRIM PO SCH (20:43)
[2019-09-04] MEDS: REMERON SOLTAB PO SCH (20:44)
[2019-09-04] MEDS: TENORMIN PO SCH (20:44)
[2019-09-04] MEDS: ARICEPT PO SCH (20:44)
[2019-09-04] MEDS: ZITHROMAX PO SCH (20:44)
[2019-09-04] MEDS: NEURONTIN PO SCH (20:44)
[2019-09-04] MEDS: LOVENOX SUBQ SCH (20:45)
--- NOTE | 2019-09-04 21:20 | EKG Report ---
Test Performed on : 09/04/2019 11:12:11 AM Test Reason : weakness Blood Pressure : / mmHG Vent. Rate : 051 BPM Atrial Rate : 050 BPM P-R Int : 000 ms QRS Dur : 108 ms QT Int : 464 ms P-R-T Axes : 000 -20 056 degrees QTc Int : 427 ms Atrial fibrillation. with slow ventricular response. Incomplete left bundle branch block Minimal voltage criteria for LVH, may be normal variant Abnormal ECG When compared with ECG of 14-AUG-2019 18:46, (Unconfirmed) Atrial fibrillation. has replaced Sinus rhythm. Incomplete left bundle branch block has replaced Incomplete right bundle branch block Unconfirmed Result
[2019-09-05] MEDS: BENICAR PO SCH (08:10)
[2019-09-05] MEDS: APRESOLINE PO SCH ×5 (08:10→16:53)
[2019-09-05] MEDS: NEURONTIN PO SCH ×3 (08:10→16:53)
[2019-09-05] MEDS: JANUVIA PO SCH (08:10)
[2019-09-05] MEDS: TENORMIN PO SCH ×2 (08:10→20:21)
[2019-09-05] MEDS ORDERED: NORVASC PO SCH (09:00)
--- NOTE | 2019-09-05 14:43 | NEPHROLOGY CONSULTATION ---
DATE: 09/04/2019 REASON FOR CONSULTATION: Kidney disease and anemia. HISTORY OF PRESENT ILLNESS: Mr. Shaikh is an 79-year-old white male with known chronic kidney disease, hypertension and diabetes. He has heavy proteinuria and was admitted to the hospital earlier this year, at which time we saw him in consultation. His creatinine was around 3 and his urine immunophoresis was positive for light chains. He has not been seen in our office since discharge. He was seen by Dr. Mejia within the week prior to admission because of his blood pressure and problems with his bowel control. Since that time, his family has come to visit and they found him to be confused, very weak and perhaps having a fever. On this basis, he was brought to the emergency room for evaluation. His initial ER evaluation found blood pressure 175/65 and he was afebrile. His initial laboratory data found creatinine 3.1 with a hemoglobin of 9.6. We were asked to see him in consultation. Currently he states he is feeling well. He was asleep on my arrival but he is easily arousable. Denies pain, nausea, shortness of breath, etc. States he plans to eat his breakfast. PAST MEDICAL HISTORY: As above. HOME MEDICATIONS: Include Januvia, allopurinol, amlodipine, atenolol, donepezil, multivitamin, vitamin D3, furosemide, gabapentin, glimepiride, hydralazine, lorazepam, melatonin, mirtazapine. ALLERGIES: None. SOCIAL HISTORY: He lives with his daughter, having been recently . No alcohol or tobacco. FAMILY HISTORY: Otherwise noncontributory. REVIEW OF SYSTEMS: Otherwise noncontributory. PHYSICAL EXAMINATION: Vital Signs: Blood pressure 186/49, heart rate 54, respirations 20, afebrile. General: He is an elderly man, lying on his left side, no acute distress. Skin: Warm and dry. Somewhat pale. HEENT: Conjunctivae are pink. Pupils are equal. Oropharynx is clear. Neck: Supple. Trachea is midline. Neck vein distention is not present. Heart: Regular without gallops or murmurs. Lungs: Equal. No crackles or wheezes. Abdomen: Obese, soft, nontender. Bowel sounds are present. No organomegaly, masses or bruits. Extremities: Have minimal edema. No clubbing or cyanosis. IMPRESSION: Renal failure. Presumably, chronic kidney disease stage IV secondary to diabetes. He does have heavy proteinuria and a history of positive urine immunoelectrophoresis. I will repeat and quantify his urine M-spike. I will also check a skeletal survey, iron studies, B12, folate, etc. May need Hematology consult. cc: MD Rickie Dominguez MD
--- NOTE | 2019-09-05 15:28 | Diag Imaging Result Doc PS360 ---
EXAM: US RENAL 2 (RETROPER) COMPLETE - 09/05/2019 HISTORY: decreased renal function TECHNIQUE: Bilateral renal ultrasound COMPARISON: 03/30/2019 FINDINGS: The right kidney measures 12.8 x 5.6 x 6.6 cm in size. The left kidney measures 12.4 x 5.6 x 7 cm in size. There are right renal cysts measuring up to 3.5 cm. There are left renal cysts measuring up to 5.5 cm. There is no solid renal mass, renal stone, or hydronephrosis identified. The renal cortices appear diffusely mildly hyperechoic which can be seen with medical renal disease. Images of the urinary bladder demonstrate no lesion. IMPRESSION: Possible medical renal disease. Bilateral renal cysts. No hydronephrosis. Electronically signed by Karson Juan 09/05/2019 3:26 PM
--- NOTE | 2019-09-05 15:49 | Diag Imaging Result Doc PS360 ---
EXAM: SKELETAL SURVEY (ADULT) - 09/05/2019 HISTORY: possible myeloma TECHNIQUE: Skeletal survey COMPARISON: 09/04/2019 one view chest FINDINGS: There are degenerative changes of the cervical spine, thoracic spine, and lumbar spine. There are atherosclerotic calcifications in the abdominal aorta. There is apparent old fracture deformity of the radial head the right elbow. There are degenerative changes at the bilateral elbows, bilateral wrists, bilateral knees, and bilateral ankles. There is apparent large accessory ossicle inferior to the lateral malleolus on the right. There is no bony destructive lesion identified. There is infiltrate in the right upper lobe lung which appears to have decreased. IMPRESSION: Old fracture deformity right radial head. Degenerative changes. No evidence of destructive bone lesion. Right upper lobe infiltrate which is decreased compared to prior. Follow-up is recommended to ensure resolution. Electronically signed by Karson Juan 09/05/2019 3:47 PM
[2019-09-05] MEDS ORDERED: NORVASC PO ONE (16:22)
[2019-09-05] MEDS ORDERED: ROCEPHIN 1 GM in NS 50 ML IV SCH (17:00)
[2019-09-05] MEDS: REMERON SOLTAB PO SCH (20:20)
[2019-09-05] MEDS: ZITHROMAX PO SCH (20:20)
[2019-09-05] MEDS: ZYLOPRIM PO SCH (20:20)
[2019-09-05] MEDS: NORVASC PO SCH (20:21)
[2019-09-05] MEDS: LOVENOX SUBQ SCH (20:21)
[2019-09-05] MEDS: ARICEPT PO SCH (20:21)
[2019-09-06 06:03] LABS: IRON SATURATION 19 %; TIBC 178 ug/dL; TOTAL IRON 34 ug/dL (53-167); UNBOUND IRON 144 ug/dL (112-346)
[2019-09-06 06:20] LABS: FERRITIN 138 ng/mL (30-400)
[2019-09-06] MEDS: JANUVIA PO SCH (08:08)
[2019-09-06] MEDS: NEURONTIN PO SCH ×3 (08:09→17:31)
[2019-09-06] MEDS: NORVASC PO SCH (08:09)
[2019-09-06] MEDS: TENORMIN PO SCH (08:14)
[2019-09-06] MEDS: BENICAR PO SCH (08:15)
[2019-09-06] MEDS: APRESOLINE PO SCH ×3 (08:15→17:32)
--- NOTE | 2019-09-06 10:31 | Diag Imaging Result Doc PS360 ---
EXAM: CHEST-2 VIEWS HISTORY: pneumonia F/U TECHNIQUE: Two views COMPARISON: 09/04/2019 FINDINGS: The lungs are hyperexpanded. The heart is not enlarged. The vessels are not distended. There are fewer interstitial markings in the right upper lobe on the current exam. No pleural effusions. IMPRESSION: Improvement in the right upper lobe pneumonia. There is emphysema. Electronically signed by Hayden Trinh 09/06/2019 10:29 AM
--- NOTE | 2019-09-06 14:42 | DISCHARGE SUMMARY ---
ADMISSION DATE: 09/04/2019 DISCHARGE DATE: 09/06/2019 FINAL DIAGNOSES: 1. Right upper lobe pneumonia. 2. Essential hypertension, treatment resistant. 3. Stage 4 chronic kidney disease. 4. 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 5. MGUS HISTORY OF PRESENT ILLNESS: Mr. Shaikh is an 79-year-old gentleman with longstanding hypertension, chronic kidney disease and diabetes. He was brought to the emergency room for evaluation after his son found him at home weak and in the bed. In the emergency room, his chest x-ray showed a right upper lobe infiltrate with air bronchograms, although he denied any shortness of breath, cough or chest congestion. His white blood count was normal, but he had abnormal chemistry profile with BUN of 63 and creatinine of 3.1, estimated GFR of 19. This is his baseline. PHYSICAL EXAMINATION: VITAL SIGNS: Blood pressure of 173/65, pulse of 54. He was afebrile. GENERAL APPEARANCE: Chronically ill appearing elderly gentleman in no distress. NECK: Supple with no adenopathy or JVD. CARDIOVASCULAR: Regular rate and rhythm. No murmurs. LUNGS: Clear to auscultation without crackles or wheezes. ABDOMEN: Soft and nontender. HOSPITAL COURSE: He was admitted to the Medical Floor and treated with intravenous ceftazidime and oral azithromycin. Dr. Solis, gastroenterology physician, was consulted. He also had a history of monoclonal gammopathy and has previously seen Dr. Mauricio. Dr. Solis ordered a skeletal survey and 24-hour urine and immunochemistry. With antibiotics, he remained asymptomatic. His chest x-ray improved. His blood pressure continued to fluctuate, and his amlodipine was increased to twice a day. He is aware that it is very important to maintain good blood pressure control and take his medications regularly to protect his kidneys. I feel he is on adequate antibiotics and will require antibiotics at discharge. He is to return to my office in 8 to 14 days in followup and to see Dr. Solis per his instructions. DISCHARGE MEDICATIONS: Acetaminophen 650 mg q.6 hours as needed for fever or pain, amlodipine 5 mg twice a day, donepezil 10 mg nightly at bedtime, olmesartan 40 mg daily, allopurinol 100 mg nightly at bedtime, vitamin D2 50,000 units once weekly, fexofenadine 60 mg nightly at bedtime p.r.n. for allergies, glimepiride 1 mg daily, atenolol 50 mg twice a day for blood pressure, sitagliptin 50 mg daily, furosemide 40 mg daily, gabapentin 100 mg 3 times a day, hydralazine 25 mg 3 times a day, mirtazapine 30 mg nightly at bedtime. cc: MD Brady Atkinson MD Reginald D. Gladish, MD MTDD
[2019-09-06] MEDS ORDERED: ZITHROMAX PO ONE (15:00)
[2019-09-06 16:55] VITALS: BP 188/56
[2019-09-06 18:07] LABS: CREATININE 3.1 mg/dL (0.7-1.2)
[2019-09-06 18:21] LABS: UR CREATININE 61.5 mg/dL (14-26); UR CREATININE TOTAL 1445.3 mg/24 (800-1800)
== END 2019-09-06 17:25 | disposition home or self-care (01) | DRG 194 ==
LOC: ED 10:50 → 1N 17:28
PROVIDERS: ADMIT Internal Medicine; ATTEND Internal Medicine